=== PATIENT | male | born 2000 | race Caucasian/White ===

== ENCOUNTER 2024-07-02 21:21 | Emergency (ER) | payer BC, SELFPAY ==
[2024-07-02 22:08] VITALS: BP 134/95; PULSE 88; TEMP 36.5; O2SAT 100; BMI 18.4
--- NOTE | 2024-07-02 22:34 | ED_ITS ---
HPI - Male Genitourinary General Chief complaint: Urogenital-Male Stated complaint: GROIN PAIN Time Seen by Provider: 07/02/24 21:25 Source: patient Mode of arrival: walk-in Limitations: no limitations History of Present Illness HPI Narrative: This 23-year-old male who is sexually active presents for evaluation of sharp stabbing pain in the end of his penis. He had similar symptoms several months ago and was seen at [facility]. He had an ultrasound done at that time and urine was sent for testing. He states he tested negative for any STDs. He was not placed on any medications at that time. Several weeks ago the symptoms started again and he went to see his family physician who examined him and thought that he likely had a urinary tract infection. He put him on antibiotics but the patient is still having intermittent episodes of sharp stabbing pain at the end of his penis. He does not have any penile discharge. He does not have any abdominal pain or flank pain. His girlfriend is with him and denies that she has any discomfort discharge or other related symptoms. He does not have a history of STDs. He has been urinating normally and not noticed any blood in his urine. He denies that there is any scrotal or testicle pain. Related Data Home Medications ?Medication ?Instructions ?Recorded ?Confirmed azithromycin 250 mg tablet mg 07/02/24 ciprofloxacin HCl 500 mg tablet mg 07/02/24 Allergies Allergy/AdvReac Type Severity Reaction Status Date / Time No Known Drug Allergies Allergy Verified 07/02/24 22:10 Review of Systems ROS Status of ROS 10 or more systems reviewed and unremark able except as noted in history and below Exam Narrative Exam Narrative: Vital signs and Nursing Notes reviewed: Patient is afebrile with a normal pulse, blood pressure is mildly elevated 134/95, he is not hypoxic with pulse ox of 100% on room air General: Awake, alert, oriented, no acute distress, lying comfortably on the stretcher HEENT: Normocephalic atraumatic, mucous membranes are moist and pink, eyes are clear, normal conjunctiva, vision is grossly intact Neck: Supple, no meningeal signs, no anterior or posterior cervical lymphadenopathy Chest: Lungs are clear to auscultation with good air entry, there is no wheezing rhonchi or rales appreciated no accessory muscle use, patient is speaking in complete sentences-no chest wall tenderness to palpation CVS: Regular rate and rhythm S1-S2, no murmurs rubs or gallops, pulses are brisk and equal bilaterally ABD: Soft, nondistended, nontender, no rebound guarding or rigidity, bowel sounds are normal, no pulsatile masses appreciated : Chaperoned exam, patient is circumcised, urethra looks somewhat narrowed. There is no discharge or drainage from the urethral meatus. There is no rash, swelling or notable abnormality. There is no inguinal lymphadenopathy. Testes are descended and nontender bilaterally. Extremities: Moving all extremities, no lower extremity tenderness or swelling noted, negative Homans' sign, pulses are brisk and equal bilaterally Skin: Normal in appearance without rash,pallor, petechiae or purpura Neuro: No focal deficits Constitutional Vital Signs, click to edit/add: Last Vital Signs Temp 97.7 F 07/02/24 22:08 Pulse 88 07/02/24 22:08 Resp 16 07/02/24 22:08 BP 134/95 H 07/02/24 22:08 Pulse Ox 100 07/02/24 22:08 O2 Del Method Room Air 07/02/24 22:08 Course Vital Signs Vital signs: Vital Signs Temperature 97.7 F 07/02/24 22:08 Pulse Rate 88 07/02/24 22:08 Respiratory Rate 16 07/02/24 22:08 Blood Pressure 134/95 H 07/02/24 22:08 Pulse Oximetry 100 07/02/24 22:08 Oxygen Delivery Method Room Air 07/02/24 22:08 Temperature 97.7 F 07/02/24 22:08 Pulse Rate 88 07/02/24 22:08 Respiratory Rate 16 07/02/24 22:08 Blood Pressure 134/95 H 07/02/24 22:08 Pulse Oximetry 100 07/02/24 22:08 Oxygen Delivery Method Room Air 07/02/24 22:08 MDM - Male Genitourinary MDM Narrative Medical decision making narrative: This 23-year-old male presents for evaluation of pain in the distal end of his penis. He has had that in the past and was tested for STDs and had urinalysis done that was negative. He also states that he had an ultrasound done at [facility]. His pain comes and goes. His genital exam is normal with the exception of what appears to be somewhat narrowed distal urethra. This was concerning for a stricture. He was able to produce a urine in the emergency department that is negative for infection. There was no sign of any skin rash, urethral discharge or other notable abnormality. His girlfriend does not have any STD related issues. He was given a dose of Pyridium in the emergency department. I explained to him that I suspect that he has some degree of urethral stricture and will be referred to outpatient urology. Lab Data Labs: Lab Results 07/02/24 Range/Units 23:10 Urine Color Yellow (YELLOW) Urine Clarity Clear (CLEAR) Urine pH 6.0 (5.0-9.0) Ur Specific [place] >=1.030 A (1.005-1.025) Urine Protein Negative (NEG/TRACE) mg/dL Urine Glucose (UA) Negative (NEGATIVE) mg/dL Urine Ketones Trace A (NEGATIVE) mg/dL Urine Occult Blood Negative (NEGATIVE) Urine Nitrite Negative (NEGATIVE) Urine Bilirubin Negative (NEGATIVE) Urine Urobilinogen 0.2 (0.2-1.0) EU/dL Ur Leukocyte Esterase Negative (NEGATIVE) Discharge Plan Discharge Chief Complaint: Urogenital-Male Clinical Impression: Urethral stricture Patient Disposition: Home, Self-Care Time of Disposition Decision: 23:41 Condition: Good Prescriptions / Home Meds: No Action azithromycin 250 mg tablet ciprofloxacin HCl 500 mg tablet Print Language: Wolof Referrals: Ezequiel Griffith MD [Primary Care Provider] - 1 week Marizol Matthews MD [Physician] - As soon as possible
--- NOTE | 2024-07-02 22:41 | PC.NURSE ---
Pt presents to ER for penis pain which he states is in the urethra and the base of his penis Pt states this happened several months ago and he went to [facility] where they tested his urine and for STD's but everything came back clean and eventually the pain went away Pt states this started several days ago so he went to his PCP who started him on 2 antibiotics but the pain is getting worse and more frequent Pain is intermittent Denies pain with urination Penile exam performed by Dr Johnson with nurse present
[2024-07-02] MEDS: PHENAZOPYRIDINE 100 MG TABLET PO (23:14)
[2024-07-02 23:32] LABS: Bilirubin Urine NEGATIVE (NEGATIVE); Blood Urine NEGATIVE (NEGATIVE); Clarity Urine CLEAR (CLEAR); Color Urine YELLOW (YELLOW); Glucose Urine UA NEGATIVE (NEGATIVE); Ketones Urine TRACE mg/dL (NEGATIVE); Leukocyte Esterase Urine NEGATIVE (NEGATIVE); Nitrite Urine NEGATIVE (NEGATIVE); Protein Urine NEGATIVE (NEG/TRACE); Specific Gravity Urine >=1.030 (1.005-1.025); Urobilinogen Urine 0.2 EU/dL (0.2-1.0)
[2024-07-02 23:47] LABS: Bacteria Urine TRACE #/HPF (NONE SEEN); Crystals Seen? None Seen #/HPF (None Seen); Mucus Urine MODERATE (NONE SEEN); RBC Urine 0-2 #/HPF (0-2); Squamous Epithelial Cell Urine FEW #/LPF (NONE/RARE); WBC Urine 0-2 #/HPF (NONE SEEN)
[2024-07-02 23:48] LABS: Cast Seen? NONE SEEN #/LPF (NONE SEEN)
[2024-07-02 23:50] VITALS: BP 118/70; PULSE 62; O2SAT 16
== END 2024-07-02 23:53 | disposition home or self-care (01) ==
PROVIDERS: Emergency Provider Emergency Medicine; PCP Family Medicine
DX: N35.919 Unspecified urethral stricture, male, unspecified site (principal)
CPT/HCPCS: 81001; 99283